=== PATIENT | female | born 1945 | race Caucasian/White ===

== ENCOUNTER 2019-03-26 12:45 | Emergency (ER) | payer MEDICARE ==
[~2019-03-26] VITALS: Ht 162.6 cm; Wt 63.6 kg
--- NOTE | 2019-03-26 13:10 | NUR ---
TASK RN: PT WHEELED TO RESTROOM TO PROVIDE URINE SAMPLE. PT UNABLE TO GET URINE INTO CUP. PT CONNECTED TO ALL MONITORING. FAMILY AT BEDSIDE.
--- NOTE | 2019-03-26 13:46 | NUR ---
TASK RN: ERP DR. ART AT BEDSIDE.
[2019-03-26 14:02] VITALS: BP 180/94
--- NOTE | 2019-03-26 14:03 | NUR ---
TASK RN: PT REFUSING TO STAY AND HAVE BLOODWORK DONE. DOES NOT WANT TO STAY FOR RESULTS. STATES SHE IS CALUSTROPHOBIC AND WANTS TO GO HOME. PT EDUCATED ON IMPORTANCE OF STAYING TO GET BLOODWORK AND IMAGING DONE. PT CONTINUES TO REFUSE TO STAY IN ED. ERP AWARE.
== END 2019-03-26 14:19 | disposition home or self-care (01) ==
LOC: ED 14:13
DX: R55 Syncope and collapse (principal); I10 Essential (primary) hypertension
CPT/HCPCS: 93005; 99283

== ENCOUNTER 2019-06-14 10:50 | Inpatient (IN) | payer MEDICARE ==
[~2019-06-14] VITALS: Ht 162.6 cm; Wt 71.6 kg
[~2019-06-14 10:50] MED LIST: ALPR0.25 PO; APIX5TAB PO; ATOR-2 PO; DILT60TA27 PO; FURO-93 PO; HYDR-3342 PO; LISI-167 PO; METO50TA82 PO; OMEP40CA42 PO; SERT50TA28 PO
[2019-06-14] MEDS ORDERED: DILTIAZEM 5 MG/ML, 5ML ONE (11:54)
[2019-06-14] MEDS ORDERED: DILTIAZEM 5 MG/ML, 5ML IVPush ONE (12:00)
--- NOTE | 2019-06-14 12:00 | NUR ---
CARDIZEM GIVEN PT HR RESPONDED DECREASING FROM 150 TO LOW 100s. MD TO BE UPDATED. LABS COLLECTED
[2019-06-14 12:11] LABS: BASOPHILS % (AUTO) 0 % (0-1); EOSINOPHILS # (AUTO) 0.09 x10^3/uL (0-0.4); EOSINOPHILS % (AUTO) 2 % (1-7); LYMPHOCYTES # (AUTO) 0.47 x10^3/uL (1-3.4); LYMPHOCYTES % (AUTO) 8 % (22-44); MD NO; MEAN CORPUSCULAR HEMOGLOBIN 25.2 pg (27.0-34.8); MEAN CORPUSCULAR VOLUME 78.9 fL (80-100); MEAN PLATELET VOLUME 7.5 fL (7.4-10.4); MONOCYTES # (AUTO) 0.25 x10^3/uL (0.2-0.8); MONOCYTES % (AUTO) 4 % (2-9); NEUTROPHILS # (AUTO) 5.27 x10^3/uL (1.8-6.8); NEUTROPHILS % (AUTO) 87 % (42-75); PLATELET COUNT 302 x10^3/uL (130-400); RED BLOOD COUNT 4.53 x10^6/uL (3.82-5.3); RED CELL DISTRIBUTION WIDTH 16.4 % (9.6-15.2)
[2019-06-14 12:20] LABS: ALANINE AMINOTRANSFERASE 25 U/L (12-78); ALBUMIN 3.5 g/dL (3.4-5.0); ANION GAP 9 mmol/L (5-15); CALCIUM 9.2 mg/dL (8.5-10.1); CHLORIDE 102 mmol/L (98-107); CREATININE 1.31 mg/dL (0.55-1.02)
[2019-06-14 12:23] LABS: ALKALINE PHOSPHATASE 142 U/L (45-117); BILIRUBIN,TOTAL 1.1 mg/dL (0.2-1.0); INTERNATIONAL NORMALIZED RATIO 1.14 (0.93-1.1); PROTHROMBIN TIME 12.1 Seconds (9.6-11.5); TOTAL PROTEIN 7.8 g/dL (6.4-8.2)
--- NOTE | 2019-06-14 12:25 | NUR ---
PT FOUND TO BE NON COMPLIANT WITH ALL MEDS. WHEN ASKED IF SHE HAS TAKEN HER MEDS TODAY PT STS "THE DOCS THINK I DO." PT UNABLE TO STS WHICH MEDS SHE HAS AT HOME. WILL CONTINUE TO MONITOR
--- NOTE | 2019-06-14 12:42 | NUR ---
REQUEST SENT TO PHARM
[2019-06-14] MEDS: DILTIAZEM 125 MG in SODIUM CHLORIDE 0.9% 100 ML IV SCH (12:54)
--- NOTE | 2019-06-14 12:54 | NUR ---
[facility] DRIP STARTED. DR CISNEROS AT BEDSIDE FOR ADMIT ASSESSMENT
--- NOTE | 2019-06-14 13:22 | NUR ---
REPORT GIVEN TO LOREN RN, PT READY FOR TRANSPORT TO FLOOR
[2019-06-14 13:30] LABS: TROPONIN I < 0.015 ng/mL (0.000-0.045)
[2019-06-14] MEDS ORDERED: NITROGLYCERIN 0.4 MG/SPRAY SL PRN (13:30)
[2019-06-14] MEDS ORDERED: POTASSIUM CHLORIDE 10% 40 MEQ/30 ML UDC PO ONE (13:30)
[2019-06-14] MEDS ORDERED: ONDANSETRON ODT 4 MG PO PRN (13:30)
[2019-06-14] MEDS ORDERED: ONDANSETRON 2MG/ML, 2ML IVPush PRN (13:30)
[2019-06-14] MEDS ORDERED: ACETAMINOPHEN 325 MG TABLET PO PRN (13:30)
[2019-06-14 14:00] VITALS: BP 119/67
[2019-06-14] MEDS ORDERED: POTASSIUM CHLORIDE 20 MEQ TAB.ER.PRT PO ONE (14:00)
[2019-06-14] MEDS: LIDODERM 5% PATCH TD SCH (14:13)
[2019-06-14] MEDS: morphine SULFATE 10 MG/ML, 1ML IVPush PRN (14:34)
[2019-06-14] MEDS: DILTIAZEM 60 MG TABLET PO SCH ×2 (15:28→21:16)
[2019-06-14] MEDS: FUROSEMIDE 40 MG/4 ML IV SCH ×2 (15:30→21:14)
[2019-06-14] MEDS ORDERED: FUROSEMIDE 20 MG/2 ML IV SCH (16:00)
[2019-06-14] MEDS: PANTOPRAZOLE 40MG TABLET PO SCH (16:05)
[2019-06-14] MEDS: SERTRALINE 50MG TABLET PO SCH (16:05)
[2019-06-14] MEDS: METOPROLOL TARTRATE 50 MG TAB PO SCH (16:06)
[2019-06-14] MEDS: BACLOFEN 10 MG TABLET PO PRN (16:06)
[2019-06-14] MEDS: APIXABAN 5 MG TABLET PO SCH (16:06)
[2019-06-14 16:31] VITALS: BP 139/99
[2019-06-14] MEDS: NITROGLYCERIN 0.4 MG BOTTLE (25 TABS) SL PRN ×3 (16:35→17:06)
[2019-06-14 16:42] VITALS: BP 118/81
[2019-06-14 17:01] VITALS: BP 129/73
[2019-06-14 18:14] VITALS: BP 127/85
[2019-06-14 19:47] LABS: ANION GAP 7 mmol/L (5-15); CALCIUM 8.7 mg/dL (8.5-10.1); CHLORIDE 104 mmol/L (98-107); CREATININE 1.25 mg/dL (0.55-1.02)
[2019-06-14 19:51] LABS: TROPONIN I 0.032 ng/mL (0.000-0.045)
[2019-06-14] MEDS ORDERED: APIXABAN 5 MG TABLET PO SCH (21:00)
[2019-06-14] MEDS ORDERED: METOPROLOL TARTRATE 50 MG TAB PO SCH (21:00)
[2019-06-14] MEDS: ATORVASTATIN 80 MG TABLET PO SCH (21:16)
[2019-06-14 23:40] VITALS: BP 118/85
[2019-06-15] MEDS: DILTIAZEM 125 MG in SODIUM CHLORIDE 0.9% 100 ML IV SCH (01:30)
[2019-06-15 02:18] LABS: BASOPHILS # (AUTO) 0.01 x10^3/uL (0-0.1); BASOPHILS % (AUTO) 0 % (0-1); EOSINOPHILS # (AUTO) 0.08 x10^3/uL (0-0.4); EOSINOPHILS % (AUTO) 1 % (1-7); LYMPHOCYTES # (AUTO) 1.01 x10^3/uL (1-3.4); LYMPHOCYTES % (AUTO) 19 % (22-44); MD NO; MEAN CORPUSCULAR HEMOGLOBIN 25.1 pg (27.0-34.8); MEAN CORPUSCULAR VOLUME 78.5 fL (80-100); MEAN PLATELET VOLUME 7.2 fL (7.4-10.4); MONOCYTES # (AUTO) 0.52 x10^3/uL (0.2-0.8); MONOCYTES % (AUTO) 10 % (2-9); NEUTROPHILS # (AUTO) 3.78 x10^3/uL (1.8-6.8); NEUTROPHILS % (AUTO) 70 % (42-75); PLATELET COUNT 272 x10^3/uL (130-400); RED BLOOD COUNT 3.97 x10^6/uL (3.82-5.3); RED CELL DISTRIBUTION WIDTH 16.6 % (9.6-15.2)
[2019-06-15 02:26] LABS: ANION GAP 9 mmol/L (5-15); CALCIUM 8.8 mg/dL (8.5-10.1); CHLORIDE 105 mmol/L (98-107); CREATININE 1.25 mg/dL (0.55-1.02)
[2019-06-15 02:33] LABS: TROPONIN I 0.025 ng/mL (0.000-0.045)
[2019-06-15] MEDS ORDERED: PANTOPRAZOLE 40MG TABLET PO SCH (06:00)
[2019-06-15 06:32] VITALS: BP 133/82
[2019-06-15] MEDS: PANTOPRAZOLE 40MG TABLET PO SCH (06:46)
[2019-06-15] MEDS: DILTIAZEM 60 MG TABLET PO SCH ×2 (06:46→11:17)
[2019-06-15] MEDS: FUROSEMIDE 40 MG/4 ML IV SCH ×2 (06:47→17:18)
[2019-06-15] MEDS: SERTRALINE 50MG TABLET PO SCH (08:35)
[2019-06-15] MEDS: METOPROLOL TARTRATE 50 MG TAB PO SCH ×2 (08:36→20:59)
[2019-06-15] MEDS: APIXABAN 5 MG TABLET PO SCH ×2 (08:37→20:58)
[2019-06-15] MEDS ORDERED: SERTRALINE 50MG TABLET PO SCH (09:00)
[2019-06-15] MEDS ORDERED: POTASSIUM CHLORIDE 20 MEQ TAB.ER.PRT PO ONE (09:00)
[2019-06-15] MEDS ORDERED: DILTIAZEM 30 MG TABLET PO ONE (11:30)
[2019-06-15 11:53] VITALS: BP 152/87
[2019-06-15 12:20] VITALS: BP 144/85
[2019-06-15] MEDS: LIDODERM 5% PATCH TD SCH (13:48)
[2019-06-15] MEDS ORDERED: DILTIAZEM 60 MG TABLET PO SCH (16:12)
[2019-06-15 18:33] VITALS: BP 179/92
[2019-06-15] MEDS: DILTIAZEM 30 MG TABLET PO SCH (20:58)
[2019-06-15] MEDS: ATORVASTATIN 80 MG TABLET PO SCH (20:58)
[2019-06-15 23:51] VITALS: BP 155/88
[2019-06-16] VITALS (7 sets, daily range): BP systolic 149–191; BP diastolic 81–110
[2019-06-16] MEDS: OXYcodone IR 5MG TABLET PO PRN ×2 (00:48→22:03)
[2019-06-16 06:23] LABS: CHLORIDE 105 mmol/L (98-107)
[2019-06-16] MEDS: hydrALAzine 20 MG/ML, 1ML IVPush PRN ×2 (06:29→11:09)
[2019-06-16] MEDS: FUROSEMIDE 40 MG/4 ML IV SCH ×2 (06:30→16:36)
[2019-06-16] MEDS: PANTOPRAZOLE 40MG TABLET PO SCH (06:31)
[2019-06-16] MEDS: DILTIAZEM 30 MG TABLET PO SCH ×4 (06:31→21:47)
[2019-06-16 06:32] LABS: % IRON SATURATION 13 % (20-55); ANION GAP 8 mmol/L (5-15); CREATININE 1.43 mg/dL (0.55-1.02); IRON LEVEL 33 mcg/dL (50-170); TOTAL IRON BINDING CAPACITY 254 mcg/dL (250-450); TRANSFERRIN 199 mg/dL (200-360)
[2019-06-16] MEDS: BACLOFEN 10 MG TABLET PO PRN (07:53)
[2019-06-16] MEDS: METOPROLOL TARTRATE 50 MG TAB PO SCH ×2 (07:54→21:47)
[2019-06-16] MEDS: APIXABAN 5 MG TABLET PO SCH ×2 (07:54→18:17)
[2019-06-16] MEDS: SERTRALINE 50MG TABLET PO SCH (07:54)
[2019-06-16] MEDS ORDERED: METHOCARBAMOL 500 MG TABLET PO PRN (08:00)
[2019-06-16 08:30] LABS: TROPONIN I < 0.015 ng/mL (0.000-0.045)
[2019-06-16] MEDS: morphine SULFATE 10 MG/ML, 1ML IVPush PRN (08:41)
[2019-06-16] MEDS: POTASSIUM CHLORIDE 20 MEQ TAB.ER.PRT PO SCH ×2 (08:53→16:36)
[2019-06-16] MEDS: METOLAZONE 5 MG TABLET PO SCH (12:07)
[2019-06-16] MEDS: LIDODERM 5% PATCH TD SCH (15:59)
[2019-06-16] MEDS: FERROUS SULFATE 325 MG TABLET PO SCH (16:36)
[2019-06-16] MEDS: ACETYLCYSTEINE 600 MG CAPSULE PO SCH (21:47)
[2019-06-16] MEDS: ATORVASTATIN 80 MG TABLET PO SCH (21:48)
[2019-06-17] VITALS (8 sets, daily range): BP systolic 132–188; BP diastolic 74–115
[2019-06-17 05:27] LABS: BASOPHILS # (AUTO) 0.04 x10^3/uL (0-0.1); BASOPHILS % (AUTO) 1 % (0-1); EOSINOPHILS % (AUTO) 2 % (1-7); LYMPHOCYTES # (AUTO) 1.07 x10^3/uL (1-3.4); LYMPHOCYTES % (AUTO) 17 % (22-44); MD NO; MEAN CORPUSCULAR HEMOGLOBIN 25.1 pg (27.0-34.8); MEAN CORPUSCULAR HGB CONC 31.9 g/dL (32.4-35.8); MEAN CORPUSCULAR VOLUME 78.7 fL (80-100); MEAN PLATELET VOLUME 7.8 fL (7.4-10.4); MONOCYTES # (AUTO) 0.61 x10^3/uL (0.2-0.8); MONOCYTES % (AUTO) 10 % (2-9); NEUTROPHILS # (AUTO) 4.47 x10^3/uL (1.8-6.8); NEUTROPHILS % (AUTO) 71 % (42-75); PLATELET COUNT 290 x10^3/uL (130-400); RED BLOOD COUNT 4.23 x10^6/uL (3.82-5.3); RED CELL DISTRIBUTION WIDTH 17.4 % (9.6-15.2)
[2019-06-17 05:41] LABS: ANION GAP 10 mmol/L (5-15); CALCIUM 9.2 mg/dL (8.5-10.1); CHLORIDE 103 mmol/L (98-107); CREATININE 1.56 mg/dL (0.55-1.02)
[2019-06-17] MEDS: DILTIAZEM 30 MG TABLET PO SCH ×4 (06:30→20:16)
[2019-06-17] MEDS: PANTOPRAZOLE 40MG TABLET PO SCH (06:30)
[2019-06-17] MEDS: FUROSEMIDE 40 MG/4 ML IV SCH ×2 (06:31→17:12)
[2019-06-17] MEDS: METOLAZONE 5 MG TABLET PO SCH (06:31)
[2019-06-17] MEDS ORDERED: POTASSIUM CHLORIDE 20 MEQ TAB.ER.PRT PO ONE (08:30)
[2019-06-17] MEDS ORDERED: MAGNESIUM SULFATE PMX 2GM/50ML 50 ML ONE (08:37)
[2019-06-17] MEDS: ACETYLCYSTEINE 600 MG CAPSULE PO SCH ×2 (08:40→20:16)
[2019-06-17] MEDS: SERTRALINE 50MG TABLET PO SCH (08:40)
[2019-06-17] MEDS: METOPROLOL TARTRATE 50 MG TAB PO SCH ×2 (08:41→20:17)
[2019-06-17] MEDS: FERROUS SULFATE 325 MG TABLET PO SCH ×2 (08:43→17:12)
[2019-06-17] MEDS: POTASSIUM CHLORIDE 20 MEQ TAB.ER.PRT PO SCH ×2 (08:43→17:12)
[2019-06-17] MEDS ORDERED: MAGNESIUM SULFATE PMX 2GM/50ML 50 ML IV ONE (09:00)
[2019-06-17] MEDS ORDERED: LIDOCAINE 1%, 10ML ONE (09:28)
[2019-06-17] MEDS ORDERED: OMNIPAQUE 350 MG/ML, 100ML BOTTLE ONE (10:03)
[2019-06-17] MEDS ORDERED: DILTIAZEM 60 MG TABLET PO SCH (11:00)
[2019-06-17] MEDS ORDERED: DILTIAZEM 30 MG TABLET ONE (12:21)
[2019-06-17 13:10] LABS: ALBUMIN 2.9 g/dL (3.4-5.0); BILIRUBIN, DIRECT 0.4 mg/dL (0.1-0.2)
[2019-06-17 13:13] LABS: BILIRUBIN,INDIRECT 0.9 mg/dL (0.0-2.0); BILIRUBIN,TOTAL 1.3 mg/dL (0.2-1.0)
[2019-06-17] MEDS: LIDODERM 5% PATCH TD SCH (13:30)
--- NOTE | 2019-06-17 14:00 | NUR ---
Pt will need home health care. Addendum: 06/17/19 at 1401 by Eren Finley PT Amended: Links added.
[2019-06-17] MEDS ORDERED: DILTIAZEM 30 MG TABLET PO SCH (16:00)
[2019-06-17] MEDS: ATORVASTATIN 80 MG TABLET PO SCH (20:17)
[2019-06-18] VITALS (7 sets, daily range): BP systolic 110–165; BP diastolic 72–84
[2019-06-18 06:00] LABS: BASOPHILS # (AUTO) 0.03 x10^3/uL (0-0.1); BASOPHILS % (AUTO) 1 % (0-1); EOSINOPHILS # (AUTO) 0.15 x10^3/uL (0-0.4); EOSINOPHILS % (AUTO) 3 % (1-7); LYMPHOCYTES # (AUTO) 0.96 x10^3/uL (1-3.4); LYMPHOCYTES % (AUTO) 17 % (22-44); MD NO; MEAN CORPUSCULAR HEMOGLOBIN 25.4 pg (27.0-34.8); MEAN CORPUSCULAR HGB CONC 32.2 g/dL (32.4-35.8); MEAN PLATELET VOLUME 7.9 fL (7.4-10.4); MONOCYTES # (AUTO) 0.45 x10^3/uL (0.2-0.8); MONOCYTES % (AUTO) 8 % (2-9); NEUTROPHILS # (AUTO) 4.22 x10^3/uL (1.8-6.8); NEUTROPHILS % (AUTO) 73 % (42-75); PLATELET COUNT 242 x10^3/uL (130-400); RED BLOOD COUNT 3.94 x10^6/uL (3.82-5.3); RED CELL DISTRIBUTION WIDTH 17.1 % (9.6-15.2)
[2019-06-18 06:08] LABS: CHLORIDE 99 mmol/L (98-107)
[2019-06-18 06:15] LABS: CALCIUM 8.7 mg/dL (8.5-10.1); CREATININE 1.59 mg/dL (0.55-1.02)
[2019-06-18] MEDS: DILTIAZEM 30 MG TABLET PO SCH ×4 (06:22→22:08)
[2019-06-18] MEDS: PANTOPRAZOLE 40MG TABLET PO SCH (06:22)
[2019-06-18 06:23] LABS: ANION GAP 7 mmol/L (5-15)
[2019-06-18] MEDS: FUROSEMIDE 40 MG/4 ML IV SCH ×2 (11:33→16:52)
[2019-06-18] MEDS: POTASSIUM CHLORIDE 20 MEQ TAB.ER.PRT PO SCH ×3 (11:34→22:07)
[2019-06-18] MEDS: SERTRALINE 50MG TABLET PO SCH (11:34)
[2019-06-18] MEDS: METOLAZONE 5 MG TABLET PO SCH (11:34)
[2019-06-18] MEDS: ACETYLCYSTEINE 600 MG CAPSULE PO SCH ×2 (11:35→22:08)
[2019-06-18] MEDS: METOPROLOL TARTRATE 50 MG TAB PO SCH ×2 (11:35→22:07)
[2019-06-18] MEDS: FERROUS SULFATE 325 MG TABLET PO SCH ×2 (11:35→16:52)
[2019-06-18] MEDS ORDERED: LIDOCAINE 1%, 10ML ONE (12:43)
[2019-06-18] MEDS: LIDODERM 5% PATCH TD SCH (13:30)
[2019-06-18] MEDS ORDERED: LACTULOSE 20 GM/30 ML UDC PO PRN (18:00)
[2019-06-18] MEDS ORDERED: VANCOMYCIN PER PHARMACY MC PRN (18:00)
[2019-06-18] MEDS ORDERED: BISACODYL 10 MG SUPP PR PRN (18:00)
[2019-06-18] MEDS ORDERED: VANCOMYCIN PMX 1GM/200ML 200 ML IV ONE (18:00)
[2019-06-18] MEDS: OXYcodone IR 5MG TABLET PO PRN (18:47)
[2019-06-18] MEDS ORDERED: SENNA/DOCUSATE TABLET PO SCH (21:00)
[2019-06-18] MEDS: ATORVASTATIN 80 MG TABLET PO SCH (22:07)
[2019-06-19 00:25] VITALS: BP 114/69
[2019-06-19 05:14] LABS: BASOPHILS # (AUTO) 0.02 x10^3/uL (0-0.1); BASOPHILS % (AUTO) 0 % (0-1); EOSINOPHILS # (AUTO) 0.14 x10^3/uL (0-0.4); EOSINOPHILS % (AUTO) 2 % (1-7); LYMPHOCYTES # (AUTO) 1.01 x10^3/uL (1-3.4); LYMPHOCYTES % (AUTO) 16 % (22-44); MD NO; MEAN CORPUSCULAR HEMOGLOBIN 25.2 pg (27.0-34.8); MEAN CORPUSCULAR HGB CONC 32.4 g/dL (32.4-35.8); MEAN CORPUSCULAR VOLUME 77.8 fL (80-100); MEAN PLATELET VOLUME 8.4 fL (7.4-10.4); MONOCYTES # (AUTO) 0.52 x10^3/uL (0.2-0.8); MONOCYTES % (AUTO) 8 % (2-9); NEUTROPHILS # (AUTO) 4.82 x10^3/uL (1.8-6.8); NEUTROPHILS % (AUTO) 74 % (42-75); PLATELET COUNT 220 x10^3/uL (130-400); RED BLOOD COUNT 3.77 x10^6/uL (3.82-5.3)
[2019-06-19 05:23] LABS: ANION GAP 9 mmol/L (5-15); CALCIUM 8.4 mg/dL (8.5-10.1); CHLORIDE 97 mmol/L (98-107); CREATININE 1.61 mg/dL (0.55-1.02)
[2019-06-19] MEDS: PANTOPRAZOLE 40MG TABLET PO SCH (05:29)
[2019-06-19] MEDS: DILTIAZEM 30 MG TABLET PO SCH ×3 (05:30→15:59)
[2019-06-19] MEDS: OXYcodone IR 5MG TABLET PO PRN (05:31)
[2019-06-19 06:49] VITALS: BP 139/77
[2019-06-19] MEDS ORDERED: DOCUSATE 100 MG CAPSULE PO SCH (09:00)
[2019-06-19] MEDS ORDERED: DOCUSATE 50 MG/5 ML, 10ML UDC NG SCH (09:00)
[2019-06-19 10:18] VITALS: BP 135/75
[2019-06-19] MEDS: ACETYLCYSTEINE 600 MG CAPSULE PO SCH (10:22)
[2019-06-19] MEDS: METOPROLOL TARTRATE 50 MG TAB PO SCH (10:22)
[2019-06-19] MEDS: FUROSEMIDE 40 MG/4 ML IV SCH (10:22)
[2019-06-19] MEDS: METOLAZONE 5 MG TABLET PO SCH (10:23)
[2019-06-19] MEDS: FERROUS SULFATE 325 MG TABLET PO SCH ×2 (10:23→15:59)
[2019-06-19] MEDS: POTASSIUM CHLORIDE 20 MEQ TAB.ER.PRT PO SCH ×2 (10:23→15:59)
[2019-06-19] MEDS: SERTRALINE 50MG TABLET PO SCH (10:23)
[2019-06-19 13:05] VITALS: BP 122/82
[2019-06-19] MEDS: LIDODERM 5% PATCH TD SCH (13:30)
[2019-06-19] MEDS ORDERED: FURO40TA6 PO (15:30)
[2019-06-19] MEDS ORDERED: POTA20TA14 PO (15:30)
[2019-06-19] MEDS ORDERED: CEFD300C37 PO (15:30)
[2019-06-19] MEDS ORDERED: DILT60CA PO (15:30)
[2019-06-19] MEDS ORDERED: DOXY100T23 PO (15:30)
[2019-06-19] MEDS ORDERED: FUROSEMIDE 40 MG/4 ML IV SCH (17:00)
== END 2019-06-19 16:25 | disposition home or self-care (01) | DRG 291 ==
LOC: ED 12:09 → EDIP 12:47 → SUATTDRO 12:49 → 5SO 13:38 → DCLOUNGE 06-19 16:16
PROVIDERS: ADMIT Hospitalist; ATTEND Internal Medicine
PROC: 0W993ZZ Drainage of Right Pleural Cavity, Percutaneous Approach (ICD-10-PCS; principal; 2019-06-17)
PROC: 0W9B3ZZ Drainage of Left Pleural Cavity, Percutaneous Approach (ICD-10-PCS; 2019-06-18)
DX: I13.0 Hypertensive heart and chronic kidney disease with heart failure and stage 1 through stage 4 chronic kidney disease, or unspecified chronic kidney disease (principal); I50.33 Acute on chronic diastolic (congestive) heart failure; J96.01 Acute respiratory failure with hypoxia; J18.9 Pneumonia, unspecified organism; D68.69 Other thrombophilia; I48.92 Unspecified atrial flutter; J91.8 Pleural effusion in other conditions classified elsewhere; I48.91 Unspecified atrial fibrillation; M94.0 Chondrocostal junction syndrome [Tietze]; E78.5 Hyperlipidemia, unspecified; K21.9 Gastro-esophageal reflux disease without esophagitis; F41.9 Anxiety disorder, unspecified; D50.9 Iron deficiency anemia, unspecified; E87.6 Hypokalemia; N18.3 Chronic kidney disease, stage 3 (moderate); I27.20 Pulmonary hypertension, unspecified; Z79.899 Other long term (current) drug therapy; Z82.49 Family history of ischemic heart disease and other diseases of the circulatory system; Z82.3 Family history of stroke; Z79.01 Long term (current) use of anticoagulants; Z91.19 Patient's noncompliance with other medical treatment and regimen
CPT/HCPCS: 32555; 36415; 36600; 71045; 71275; 80048; 80053; 80076; 82042; 82728; 82803; 82945; 83540; 83550; 83615; 83735; 83880; 83986; 84100; 84132; 84157; 84443; 84466; 84484; 85025; 85379; 85610; 85730; 87070; 87075; 87205; 88112; 88305; 89051; 93005; 93306; 93970; 96374; 99291; G0378; J1940; Q9967; J0360; J2270; J3475

== ENCOUNTER 2019-09-08 13:44 | Outpatient (CLI) | payer MEDICARE ==
[~2019-09-08 13:44] MED LIST changes: +CEFD300C37 PO; +DILT60CA PO; +DOXY100T23 PO; +FURO40TA6 PO; +POTA20TA14 PO
== END 2019-09-08 23:59 | disposition home or self-care (01) ==
LOC: CFH 13:44
PROVIDERS: ATTEND Internal Medicine Cardiovascular Disease
DX: I08.3 Combined rheumatic disorders of mitral, aortic and tricuspid valves (principal); I11.9 Hypertensive heart disease without heart failure; I48.91 Unspecified atrial fibrillation
CPT/HCPCS: 93306